=== PATIENT | female | born 1945 | race Caucasian/White ===

== ENCOUNTER 2019-10-19 07:35 | Outpatient (CLI) | payer MEDICARE, OTHER, SELFPAY ==
--- NOTE | ~2019-10-19 | DEXA_ITS ---
Bone Density Report Name: Azul Kaminski Age: 74 Sex: Female Ethnicity: White Date of : 1945 Indication: postmenopausal; height loss; cancer; hysterectomy; Referring Provider: IZA GUTIERREZ Study: Bone densitometry was performed. Exam Date: October 19, 2019 Accession number: [id number] Bone Density: Region BMD T-score Z-score Classification AP Spine (L1-L4) 0.761 -2.6 -0.1 Osteoporosis Femoral Neck (Left) 0.652 -1.8 0.4 Osteopenia Total Hip (Left) 0.707 -1.9 -0.1 Osteopenia Total Hip Bilateral Avg 0.727 -1.8 0.1 Osteopenia Femoral Neck (Right) 0.668 -1.6 0.5 Osteopenia Total Hip (Right) 0.746 -1.6 0.3 Osteopenia World Health Organization criteria for BMD impression classify patients as: Normal (T-score at or above -1.0), Osteopenia (T-score between -1.0 and -2.5), or Osteoporosis (T-score at or below -2.5). 10-year Fracture Risk: FRAX not reported because: Some T-score for Spine Total or Hip Total or Femoral Neck at or below -2.5 Clinical Information Provided by Patient: Has used the following medications: Vitamin D, Calcium Has the following medical conditions: Cancer, Hysterectomy Patient maximum height was 67 Menopause Age: 41 No regular weight bearing exercise Drinks caffeinated beverages Onset of menses at age 11 Number of children 2 Impression: The patient has osteoporosis, based on the Total Spine T-score. Discussion: INCREASED RISK OF FRACTURE. BONE DENSITY IS UNDESIRABLY LOW AT ONE OR MORE SKELETAL SITES, CONSISTENT WITH POSTMENOPAUSAL OSTEOPOROSIS. This patient's lowest T-score meets the World Health Organization's (WHO) criteria for osteoporosis at one or more sites (T-score -2.5 or below). In untreated patients, the risk of osteoporotic fracture increases approximately two-fold for each 1.0 SD decrease in T-score. Low bone density is not the only risk factor for fracture; also consider factors such as patient's age, frailty or poor health, risk of falling, risk of injury, previous osteoporotic fracture, family history of osteoporosis, cigarette smoking, low body weight, etc. Not everyone with low bone mineral density has osteoporosis; osteomalacia and other metabolic bone disorders should also be considered. Patients who have osteoporosis should be evaluated for specific diseases and conditions (secondary causes) that may cause or contribute to bone loss. The [place] [employer]ocrinologists (AACE) and National Osteoporosis Foundation (NOF) recommend pharmacologic intervention for all postmenopausal women whose T-score is in this range. The patient should follow a healthful lifestyle (good nutrition with adequate calcium and vitamin D, and appropriate weight-bearing exercise). Follow-Up: Consider a repeat BMD and Vertebral Fracture Assessment (VFA) exam in 2 years or sooner if
--- NOTE | ~2019-10-19 | CT_ITS ---
EXAMINATION: CT lung screening DATE: 10/19/2019 09:15 INDICATION: Personal history of nicotine dependence, prior smoker with 46 pack year history TECHNIQUE: Computed tomography (CT) of the chest was performed without intravenous contrast. The dose -length product (DLP) was 82.42 mGy-cm. Automated exposure control and iterative reconstruction techn [employer] were employed. COMPARISON: None FINDINGS: There is severe emphysema. No suspicious pulmonary nodules are identified. The lungs are fr ee of acute opacities. There is no pleural effusion or pneumothorax. No pathologically enlarged thora cic lymph nodes are identified. The heart size is normal. Calcified coronary artery atherosclerosis i s noted. There are left breast masses measuring up to 1.2 cm, diagnostic mammogram pending. There is moderate thoracic spondylosis. IMPRESSION: 1. Lung-RADS category 1: Negative. Continue annual screening with noncontrast low-dose chest CT in 12 months. Reviewed, dictated and finalized at location B. IMPRESSION: 1. Lung-RADS category 1: Negative. Continue annual screening with noncontrast l ow-dose chest CT in 12 months.
--- NOTE | ~2019-10-19 | MM_ITS ---
EXAMINATION: MM screening mariya BI w isael HISTORY: Screening TECHNIQUE: Craniocaudal and mediolateral oblique 3-D tomosynthesis images were obtained and synthetic 2-D images were generated. CAD analysis was submitted and interpreted. COMPARISON: No prior mammogram is available for comparison at this institution. BREAST PARENCHYMAL COMPOSITION: Breast composed of scattered areas of fibroglandular density. FINDINGS: There are asymmetric nodular densities of the left breast. There is no mammographic evidenc e for malignancy in the right breast. IMPRESSION: 1. Nodular asymmetries periareolar region of the left breast. 2. Additional mammographic views and possible breast ultrasound are recommended. BI-RADS Category 0: Incomplete: Needs additional imaging evaluation. Reviewed, dictated and finalized at location A. IMPRESSION: 1. Nodular asymmetries periareolar region of the left breast. 2. Additional mammographic views and possible breast ultrasound are recommended . BI-RADS Category 0: Incomplete: Needs additional imaging evaluation.
== END 2019-10-19 07:36 | disposition home or self-care (01) ==
PROVIDERS: PCP Family Medicine; Visit Provider Family Medicine
DX: Z12.31 Encounter for screening mammogram for malignant neoplasm of breast (principal); Z78.0 Asymptomatic menopausal state; Z87.39 Personal history of other diseases of the musculoskeletal system and connective tissue; Z87.891 Personal history of nicotine dependence; Z12.2 Encounter for screening for malignant neoplasm of respiratory organs; R92.8 Other abnormal and inconclusive findings on diagnostic imaging of breast; M85.89 Other specified disorders of bone density and structure, multiple sites; M81.0 Age-related osteoporosis without current pathological fracture
CPT/HCPCS: 77063; 77067; 77080; G0297

== ENCOUNTER 2019-11-13 11:22 | Outpatient (CLI) | payer MEDICARE, OTHER, SELFPAY ==
--- NOTE | ~2019-11-13 | MMUS_ITS ---
EXAMINATION: MM diagnostic mammo unilat LT, US breast LT limited HISTORY: Left breast mass TECHNIQUE: Additional 3-D tomosynthesis images of the left breast were performed and synthetic 2-D im ages were generated. CAD analysis was submitted and interpreted. High resolution Limited left breast ultrasound was performed. COMPARISON: 10/19/2019 BREAST PARENCHYMAL COMPOSITION: Breast composed of scattered areas of fibroglandular density. FINDINGS: MAMMOGRAPHIC FINDINGS: There is a 13 mm subareolar mass of the left breast with circumscribed margins. There are benign calc ifications. ULTRASOUND: Left breast ultrasound: At 3:00 near the nipple there is a 1.3 x 0.6 x 1.1 cm oval circumscribed hypo echoic mass with mixed posterior attenuation. No internal vascularity. This corresponds to the mass s een on mammography. There are shadowing calcifications at 9 and 12:00. IMPRESSION: 1. Probable benign 13 mm left breast mass at 3:00 near the nipple corresponding to the mammographic f inding. 2. Recommend 6 month follow-up left breast ultrasound BI-RADS category 3, probably benign findings. Reviewed, dictated and finalized at location A. IMPRESSION: 1. Probable benign 13 mm left breast mass at 3:00 near the nipple corresponding to the mammographic finding. 2. Recommend 6 month follow-up left breast ultrasound BI-RADS category 3, probably benign findings.
== END 2019-11-13 11:23 | disposition home or self-care (01) ==
LOC: ANHIMG 11:25
PROVIDERS: PCP Family Medicine; Visit Provider Family Medicine
DX: R92.8 Other abnormal and inconclusive findings on diagnostic imaging of breast (principal)
CPT/HCPCS: 76642; 77065

== ENCOUNTER → 2020-05-19 14:02 | Outpatient (CLI) | payer MEDICARE, OTHER, SELFPAY ==
--- NOTE | ~2020-05-19 | US_ITS ---
US breast LT limited 05/19/2020 14:24 Indication: Follow-up left breast mass Procedure: High-resolution Limited left breast ultrasound Comparison: 11/13/2019 Findings: At 3:00, 3 cm from the nipple, there is an oval circumscribed hypoechoic mass with stable s ize measuring 12 x 11 x 7 mm compared with 13 x 11 x 6 mm on prior examination. No internal vasculari ty. There is mixed posterior attenuation. No other masses identified. Impression: 1: Stable 12 mm left breast mass at 3:00, 3 cm from the nipple, likely benign. BI-RADS CATEGORY 3-PROBABLY BENIGN FINDING RECOMMENDATION: Six-month follow-up diagnostic mammogram and left breast ultrasound recommended. Reviewed, dictated and finalized at location A. Impression: 1: Stable 12 mm left breast mass at 3:00, 3 cm from the nipple, likely benign. BI-RADS CATEGORY 3-PROBABLY BENIGN FINDING RECOMMENDATION: Six-month follow-up diagnostic mammogram and left breast ultras ound recommended.
== END ==
PROVIDERS: PCP Family Medicine; Visit Provider Family Medicine
DX: R92.8 Other abnormal and inconclusive findings on diagnostic imaging of breast (principal)
CPT/HCPCS: 76642

== ENCOUNTER → 2020-11-07 09:35 | Outpatient (CLI) | payer MEDICARE, OTHER, SELFPAY ==
--- NOTE | ~2020-11-07 | XR_ITS ---
XR chest 2V DATE: 11/07/2020 10:05 INDICATION: Shortness of breath TECHNIQUE: 2 views COMPARISON: 10/19/2019 CT lung screening examinations FINDINGS: Heart size is within normal range. There is aortic calcification and tortuosity. No hilar o r mediastinal enlargement is evident. There is chronic mild elevation left leaf of the diaphragm. No pulmonary infiltrate or consolidation, pleural effusion or pulmonary vascular congestion or pneumothorax. Diffuse osteopenia. IMPRESSION: No active disease Reviewed, dictated and finalized at location B. IMPRESSION: No active disease
== END ==
PROVIDERS: PCP Family Medicine; Visit Provider Physician Assistant
DX: R06.02 Shortness of breath (principal)
CPT/HCPCS: 71046

== ENCOUNTER 2020-12-22 09:03 | Outpatient (CLI) | payer MEDICARE, OTHER, SELFPAY ==
--- NOTE | 2020-12-22 14:12 | WPDPFTINT ---
PFT Procedure Performed PFT Procedure Performed Plethysmography (Lung Vol) Diffusing Cap (DLCO) Flow Vol Loop Spirometry w/o Bronchodil PFT Interpretation This is a pulmonary function test with spirometry, plethysmography and diffusing capacity. The test was performed and results interpreted in accordance with the 2019 and 2005 ATS/ERS Task Force guidelines respectively using the Global Lung Function Initiative-2012 reference equations. Patient demonstrated good effort and cooperation. Reproducibility criteria were met. The quality of the spirometry maneuver was Grade A. Findings: Spirometry: There is decreased maximal expiratory airflow at all lung volumes with concave expiratory flow tracing. The contour the inspiratory flow tracing is normal. The FVC is 2.94 L, 111% predicted. The FEV1 is 1.35 L, 67% predicted. The FEV1: FVC ratio is 46%. Plethysmography: The total lung capacity is 5.69 L, 112% predicted. The functional residual capacity 3.74 L, 128% predicted. The residual volume is 2.70 L, 116% predicted. Diffusing capacity: The absolute diffusion capacity is 9.3, 47% predicted. The diffusing capacity corrected for alveolar volume is 2.48, 59% predicted. Impression: There is a moderate obstructive abnormality. The lung volumes are normal. The absolute diffusing capacity is moderately decreased and remains moderately decreased when corrected for alveolar volume. There are no prior studies for comparison
== END 2020-12-22 09:04 | disposition home or self-care (01) ==
LOC: ANHCARD 09:03
PROVIDERS: PCP Family Medicine; Visit Provider Family Medicine
DX: R06.02 Shortness of breath (principal); R94.2 Abnormal results of pulmonary function studies
CPT/HCPCS: 94375; 94726; 94729

== ENCOUNTER 2020-12-23 08:53 | Outpatient (CLI) | payer MEDICARE, OTHER, SELFPAY ==
--- NOTE | 2020-12-23 09:15 | EST_ITS ---
Patient Info Name: Azul Kaminski Age: 75 years : 1945 Gender: Female Ht: 64 in Wt: 166 lbs BSA: 1.87 m2 Exam Date: 12/23/2020 9:42 AM Exam Location: [facility] Pulmonary Patient Status: Outpatient Admit Date: 12/23/2020 Staff Ordering Physician: Mina Tolliver PA-C Imcu Specialist: Jf Simons RDCS, RT Attending Provider: JAX SOUTH DO Referring Physician: Unruly WYNNE; Exercise Technologist: Purvi Watson RDCS Exercise Physician: Jax South DO Exam Type: CA stress echo Study Info Indications R06.02 - Shortness of breath Treadmill exercise stress echocardiogram is performed. Summary 1. 1. Negative Sukhdev exercise stress test for ischemic ST changes by ECG criteria. 2. 2. Reduced functional capacity, achieving 5 METs of workload. 3. 3. Appropriate HR response to exercise. 4. 4. Appropriate HR recovery at 1 minute post exercise. 5. 5. Stress echocardiogram is negative for ischemia by wall motion analysis. It does demonstrate fixed basal posterior/inferior wall severe hypokinesis/akinesis suggesting prior infarct or scar. 6. 6. Patient informed of the above results. Stress Echo Findings Left Ventricle Basal posterior/inferior wall severely hypokinetic to akinetic. Remaining wall segments show appropriate increase in LV endocardial thickening and augmentation of contractility with systole. Left Ventricle Normal LV systolic function. Basal posterior/inferior wall is severey hypokinetic to akinetic. Protocol: Sukhdev Stress ECG Details Stage: REST Duration (min): 9 min : 17 sec Speed (mph): 0.0 Grade (%): 0 HR (bpm): 67 SBP (mmHg): 144 DBP (mmHg): 90 METS: --- Stage: REST Duration (min): 20 min : 51 sec Speed (mph): 0.0 Grade (%): 0 HR (bpm): --- SBP (mmHg): 144 DBP (mmHg): 90 METS: --- Stage: STAGE 1 Duration (min): 1 min : 0 sec Speed (mph): 1.7 Grade (%): 10 HR (bpm): 95 SBP (mmHg): 144 DBP (mmHg): 90 METS: --- Stage: STAGE 1 Duration (min): 2 min : 0 sec Speed (mph): 1.7 Grade (%): 10 HR (bpm): 114 SBP (mmHg): 144 DBP (mmHg): 90 METS: --- Stage: STAGE 1 Duration (min): 3 min : 0 sec Speed (mph): 1.7 Grade (%): 10 HR (bpm): 123 SBP (mmHg): 194 DBP (mmHg): 88 METS: --- Stage: STAGE 2 Duration (min): 0 min : 19 sec Speed (mph): 0.0 Grade (%): 0 HR (bpm): 128 SBP (mmHg): 194 DBP (mmHg): 88 METS: --- Stage: RECOVERY Duration (min): 0 min : 40 sec Speed (mph): 0.0 Grade (%): 0 HR (bpm): 119 SBP (mmHg): 194 DBP (mmHg): 88 METS: --- Stage: RECOVERY Duration (min): 1 min : 40 sec Speed (mph): 0.0 Grade (%): 0 HR (bpm): 108 SBP (mmHg): 196 DBP (mmHg): 88 METS: --- Stage: RECOVERY Duration (min): 2 min : 40 sec Speed (mph): 0.0 Grade (%): 0 HR (bpm): 94 SBP (mmHg): 196 DBP (mmHg): 88 METS: --- Stage: RECOVERY Duration (min): 3 min : 40 sec Speed (mph): 0.0 Grade (%): 0 HR (bpm):
== END 2020-12-23 08:54 | disposition home or self-care (01) ==
LOC: ANHCARD 08:54
PROVIDERS: PCP Family Medicine; Visit Provider Family Medicine
DX: R06.02 Shortness of breath (principal)
CPT/HCPCS: 93351

== ENCOUNTER → 2020-12-29 13:15 | Outpatient (CLI) | payer MEDICARE, OTHER, SELFPAY ==
--- NOTE | ~2020-12-29 | MMUS_ITS ---
EXAMINATION: MM diagnostic mariya BI w isael, US breast LT limited HISTORY: Follow-up for probably benign left breast mass TECHNIQUE: Craniocaudal, mediolateral, and mediolateral oblique 3-D tomosynthesis images of the vandana ts were performed and synthetic 2-D images were generated. CAD analysis was submitted and interpreted . High resolution limited left breast ultrasound was performed. COMPARISON: 05/19/2020, 11/13/2019, 10/19/2019 BREAST PARENCHYMAL COMPOSITION: The breasts are heterogeneously dense, which may obscure small masses . FINDINGS: MAMMOGRAPHIC FINDINGS: There is a stable 1.4 cm oval, obscured, equal density mass at the 3:00 location in the anterior thir d of the breast 2.5 cm from the nipple. There has been no suspicious interval change. No new mass, ca lcification, or architectural distortion are identified. Right breast: There is no evidence of suspicious mass, calcification, or architectural distortion to suggest malignancy. There has been no suspicious interval change. ULTRASOUND: There is a stable 1.2 x 0.6 cm oval, circumscribed, parallel, hypoechoic mass with no posterior featu res or internal vascularity at the 3:00 location 3 cm from the nipple. IMPRESSION: 1. Stable, probably benign left breast mass. 2. Given one year of interval stability, recommend 12 month followup bilateral diagnostic mammogram w ith left breast ultrasound. BI-RADS category 3, probably benign findings. Reviewed, dictated and finalized at location A. ING MACHINE OPERATOR IMPRESSION: 1. Stable, probably benign left breast mass. 2. Given one year of interval stability, recommend 12 month followup bilateral diagnostic mammogram with left breast ultrasound. BI-RADS category 3, probably benign findings.
== END ==
PROVIDERS: PCP Family Medicine; Visit Provider Physician Assistant
DX: R92.8 Other abnormal and inconclusive findings on diagnostic imaging of breast (principal)
CPT/HCPCS: 76642; 77062; 77066; G0279

== ENCOUNTER 2021-01-12 09:29 | Outpatient (CLI) | payer MEDICARE, OTHER, SELFPAY ==
--- NOTE | 2021-01-12 09:45 | ECHO_ITS ---
Patient Info Name: Azul Kaminski Age: 75 years : 1945 Gender: Female Ht: 64 in Wt: 166 lbs BSA: 1.87 m2 HR: 59 bpm BP: 164 / 96 mmHg Exam Date: 01/12/2021 10:32 AM Exam Location: [facility] Pulmonary Patient Status: Outpatient Admit Date: 01/12/2021 Staff Ordering Physician: Katrina Crowley MD Data Consultant: Jf Simons, JESSE, RT Attending Provider: Katrina Crowley MD Referring Physician: Carline REEDER; Exam Type: CA echo doppler color flow Study Info Indications R06.02 - Shortness of breath Complete two-dimensional, color flow and Doppler transthoracic echocardiogram is performed. Strain analysis performed. Summary 1. Complete two-dimensional, color flow and Doppler transthoracic echocardiogram is performed. 2. Left ventricular chamber dimension is normal. 3. Left ventricular systolic function is normal, estimated at 60-65%. 4. The left ventricular diastolic function is grade I diastolic dysfunction. 5. E/e' 9 is minimally elevated. 6. Global longitudinal strain is normal at -20.1%. 7. There is mild aortic valve regurgitation. 8. There is trace mitral valve regurgitation. Left Ventricle E/e' 9 is minimally elevated. Global longitudinal strain is normal at -20.1%. Left ventricular chamber dimension is normal. Left ventricular systolic function is normal, estimated at 60-65%. The left ventricular diastolic function is grade I diastolic dysfunction. Right Ventricle Right ventricular systolic function is normal and with normal TAPSE 2.2 cm. Right ventricular chamber dimension is normal. Left Atria Left atrial chamber dimension is normal. Right Atria Right atrial chamber dimension is normal. Aortic Valve The aortic valve is probable trileaflet. There is no aortic valve stenosis. There is mild aortic valve regurgitation. Pulmonic Valve There is no pulmonic regurgitation. Mitral Valve There is no mitral valve stenosis. There is trace mitral valve regurgitation. Tricuspid Valve There is no tricuspid valve regurgitation. Pericardium/Pleural There is no pericardial effusion. Inferior Vena Cava Normal inferior vena cava with >50% collapse upon inspiration consistent with normal right atrial pressure, 5 mmHg. Aorta The aortic root size at the sinus of Valsalva is normal. Left Ventricular Outflow Tract Name Value Normal LVOT 2D LVOT Diameter 1.9 cm LVOT Doppler LVOT Peak Gradient 4 mmHg LVOT Mean Gradient 2 mmHg LVOT VTI 27 cm LVOT VTI/AV VTI Ratio 0.8 LVOT Stroke Volume 79 ml LVOT CO 4.4 l/min LVOT CI 2.4 l/min/m2 Mitral Valve Name Value Normal MV Doppler MV Decel Dooly 3
== END 2021-01-12 09:30 | disposition home or self-care (01) ==
LOC: ANHCARD 09:30
PROVIDERS: PCP Family Medicine; Visit Provider Family Medicine
DX: R06.02 Shortness of breath (principal); I35.1 Nonrheumatic aortic (valve) insufficiency
CPT/HCPCS: 93306

== ENCOUNTER 2021-04-23 12:33 | Outpatient (CLI) | payer MEDICARE, OTHER, SELFPAY ==
[2021-04-23 12:45] VITALS: PULSE 90; O2SAT 91
[2021-04-23 12:47] VITALS: PULSE 118; O2SAT 87
[2021-04-23 12:48] VITALS: PULSE 118; O2SAT 87
[2021-04-23 12:49] VITALS: PULSE 121; O2SAT 90
[2021-04-23 13:00] VITALS: PULSE 92; O2SAT 92
--- NOTE | 2021-04-23 13:13 | HOMEO2EVAL ---
Evaluation was performed at [facility] Home Oxygen Evaluation RC: Home Oxygen (O2) Evaluation Start: 04/23/21 13:09 Freq: Status: Active Protocol: RPE Activity Type Activity Date Activity User E-Sign Co-Sign Detail Recorded Client Recorded Date Recorded By Document 04/23/21 12:45 KRM [email or web address] 04/23/21 13:13 KRM Document 04/23/21 12:47 KRM [email or web address] 04/23/21 13:13 KRM Document 04/23/21 12:48 KRM [email or web address] 04/23/21 13:13 KRM Document 04/23/21 12:49 KRM [email or web address] 04/23/21 13:13 KRM Document 04/23/21 13:00 KRM [email or web address] 04/23/21 13:13 KRM 04/23/21 04/23/21 04/23/21 12:45 12:47 12:48 Home O2 Evaluation Test Phase Resting Exercise Exercise Oxygen Delivery Room Air Room Air Nasal Cannula Oxygen Flow Rate (L/min) 1 Pulse Oximetry (90-100 %) 91 87 L 87 L Pulse Rate (60-100 beats/min) 90 118 H 118 H Activity Tolerance Ambulation Distance (feet) Ambulation Distance (meters) Home Oxygen Evaluation Comments Treatment Charges 04/23/21 04/23/21 12:49 13:00 Home O2 Evaluation Test Phase Exercise Resting Oxygen Delivery Nasal Cannula Room Air Oxygen Flow Rate (L/min) 2 Pulse Oximetry (90-100 %) 90 92 Pulse Rate (60-100 beats/min) 121 H 92 Activity Tolerance Good Ambulation Distance (feet) 200 Ambulation Distance (meters) 60.95 Home Oxygen Evaluation Comments PT. REQUIRES 2LPM O2 WITH ACTIVITY. Treatment Charges O2 Evaluation - Outpatient
== END 2021-04-23 12:34 | disposition home or self-care (01) ==
LOC: ANHPFT 12:35
PROVIDERS: PCP Family Medicine; Visit Provider Family Medicine
DX: J43.9 Emphysema, unspecified (principal); R06.02 Shortness of breath
CPT/HCPCS: 94618

== ENCOUNTER → 2021-10-20 11:19 | Outpatient (CLI) | payer MEDICARE, OTHER, SELFPAY ==
--- NOTE | ~2021-10-20 | XR_ITS ---
EXAMINATION: XR chest 2V DATE: 10/20/2021 11:40 INDICATION: Cough TECHNIQUE: PA and lateral views of the chest were obtained. COMPARISON: Chest radiograph dated 11/07/2020 FINDINGS: Unchanged elevation of the left hemidiaphragm. No focal airspace opacities, pulmonary edema, pleural effusion or pneumothorax. Cardiomediastinal silhouette is within normal limits. Tortuous thoracic aor ta. Mild S-shaped curvature of the thoracic spine with moderate spondylosis. IMPRESSION: 1. Unchanged elevation the left hemidiaphragm. No acute cardiopulmonary disease. Reviewed, dictated and finalized at location A. IMPRESSION: 1. Unchanged elevation the left hemidiaphragm. No acute cardiopulmonary disease .
== END ==
PROVIDERS: PCP Family Medicine; Visit Provider Physician Assistant
DX: R05.9 Cough, unspecified (principal); J43.9 Emphysema, unspecified; M47.814 Spondylosis without myelopathy or radiculopathy, thoracic region; Q25.46 Tortuous aortic arch
CPT/HCPCS: 71046

== ENCOUNTER → 2021-10-28 13:47 | Outpatient (CLI) | payer MEDICARE, OTHER, SELFPAY ==
--- NOTE | ~2021-10-28 | DEXA_ITS ---
Bone Density Report Name: SHAAN ORTEGA Age: 76 Sex: Female Ethnicity: White Date of : 1945 Indication: postmenopausal; screening for osteoporosis; height loss; asthma or emphysema; hysterectomy; Referring Provider: Senia Gutierrez Study: Bone densitometry was performed. Exam Date: October 28, 2021 Accession number: [id number] Bone Density: Region BMD T-score Z-score Classification AP Spine (L3, L4) 0.780 -2.9 -0.2 Osteoporosis Femoral Neck (Left) 0.673 -1.6 0.7 Osteopenia Total Hip (Left) 0.774 -1.4 0.6 Osteopenia Femoral Neck (Right) 0.679 -1.5 0.7 Osteopenia Total Hip (Right) 0.725 -1.8 0.2 Osteopenia Total Hip Mean 0.750 -1.6 0.4 Osteopenia World Health Organization criteria for BMD impression classify patients as: Normal (T-score at or above -1.0), Osteopenia (T-score between -1.0 and -2.5), or Osteoporosis (T-score at or below -2.5). 10-year Fracture Risk: FRAX not reported because: Some T-score for Spine Total or Hip Total or Femoral Neck at or below -2.5 Clinical Information Provided by Patient: Is being treated for osteoporosis Has used the following medications: Fosamax (i.e. alendronate), Vitamin D Has the following medical conditions: Asthma or Emphysema, Hysterectomy Patient maximum height was 67 Menopause Age: 41 No regular weight bearing exercise Drinks caffeinated beverages Onset of menses at age 11 Number of children 2 Impression: The patient has osteoporosis, based on the Total Spine T-score. Discussion: It is important to ask patients whether they are taking their medications and to encourage continued and appropriate compliance with their osteoporosis therapies to reduce fracture risk. It is also important to review their risk factors and encourage appropriate calcium and vitamin D intakes, exercise, fall prevention and other lifestyle measures. Follow-Up: Consider a repeat BMD and Vertebral Fracture Assessment (VFA) exam in 2 years or sooner if medically necessary, to reassess this patient's status. Reported by: [facility] on 10/28/2021 2:13:00 PM. Reviewed, dictated and finalized at location ABettye MATHEW
== END ==
PROVIDERS: PCP Family Medicine; Visit Provider Physician Assistant
DX: Z78.0 Asymptomatic menopausal state (principal); M81.0 Age-related osteoporosis without current pathological fracture; M85.851 Other specified disorders of bone density and structure, right thigh; M85.852 Other specified disorders of bone density and structure, left thigh
CPT/HCPCS: 77080

== ENCOUNTER → 2022-10-12 14:46 | Outpatient (CLI) | payer MEDICARE, OTHER, SELFPAY ==
--- NOTE | ~2022-10-12 | XR_ITS ---
EXAMINATION: XR chest 2V DATE: 10/12/2022 15:03 INDICATION: Shortness of breath. TECHNIQUE: Frontal and lateral views of the chest were obtained. COMPARISON: Chest 2 views 10/20/2021 FINDINGS: There is chronic mild elevation of left hemidiaphragm. There is mild atelectasis at the gwendolyn g bases. No pleural effusion or pneumothorax. The heart size is normal. IMPRESSION: 1. Mild atelectasis at the lung bases. Reviewed, dictated and finalized at location A.
== END ==
PROVIDERS: PCP Family Medicine; Visit Provider Family Medicine
DX: R09.02 Hypoxemia (principal); R06.02 Shortness of breath; J98.11 Atelectasis
CPT/HCPCS: 71046

== ENCOUNTER 2022-11-17 09:40 | Outpatient (CLI) | payer MEDICARE, OTHER, SELFPAY ==
--- NOTE | 2022-11-17 09:51 | ECHO_ITS ---
Patient Info Name: Azul Kaminski Age: 77 years : 1945 Gender: Female Ht: 67 in Wt: 173 lbs BSA: 1.94 m2 HR: 71 bpm BP: 186 / 97 mmHg Heart Rhythm: Sinus Rhythm Technical Quality: Good Exam Date: 11/17/2022 10:10 AM Exam Location: [facility] Patient Status: Outpatient Admit Date: 11/17/2022 Staff Ordering Physician: Katrina Crowley MD Auto Hiker: Maria Dolores Johnson RDCS Attending Provider: Katrina Crowley MD Referring Physician: Carline REEDER; Exam Type: CA echo doppler color flow Study Info Indications - DYSPNEA, UNSPECIFIED Complete two-dimensional, color flow and Doppler transthoracic echocardiogram is performed. Summary 1. Complete two-dimensional, color flow and Doppler transthoracic echocardiogram is performed. 2. Left ventricular chamber dimension is normal. 3. Left ventricular systolic function is normal, estimated at 60-65%. 4. There is mild concentric increased left ventricular wall thickness. 5. The left ventricular diastolic function is grade I diastolic dysfunction. 6. E/e' 8 is minimally elevated. 7. No pulmonary hypertension, estimated pulmonary arterial systolic pressure is 18 mmHg. Left Ventricle E/e' 8 is minimally elevated. Left ventricular chamber dimension is normal. Left ventricular systolic function is normal, estimated at 60-65%. There is mild concentric increased left ventricular wall thickness. The left ventricular diastolic function is grade I diastolic dysfunction. Right Ventricle Right ventricular systolic function is normal and with normal TAPSE 2.3 cm. Right ventricular chamber dimension is normal. Left Atria Left atrial chamber dimension is normal. Right Atria Right atrial chamber dimension is normal. Aortic Valve The aortic valve is trileaflet. There is no aortic valve stenosis. There is no aortic valve regurgitation. Pulmonic Valve There is no pulmonic regurgitation. Mitral Valve There is no mitral valve stenosis. There is no mitral valve regurgitation. Tricuspid Valve There is no tricuspid valve regurgitation. No pulmonary hypertension, estimated pulmonary arterial systolic pressure is 18 mmHg. Pericardium/Pleural There is no pericardial effusion. Inferior Vena Cava Normal inferior vena cava with >50% collapse upon inspiration consistent with normal right atrial pressure, 5 mmHg. Aorta The aortic root size at the sinus of Valsalva is normal. Left Ventricular Outflow Tract Name Value Normal LVOT 2D LVOT Diameter 1.8 cm LVOT Doppler LVOT Peak Gradient 4 mmHg LVOT Mean Gradient 2 mmHg LVOT VTI 32 cm LVOT VTI/AV VTI Ratio 1.1 LVOT Stroke Volume 85 ml LVOT CO 4.7 l/min LVOT CI 2.4 l/min/m2 Pulmonic Valve Name Value Normal RVOT Doppler RVOT Peak
== END 2022-11-17 09:41 | disposition home or self-care (01) ==
LOC: ANHCARD 09:41
PROVIDERS: PCP Family Medicine; Visit Provider Family Medicine
DX: J43.9 Emphysema, unspecified (principal); R06.00 Dyspnea, unspecified
CPT/HCPCS: 93306

== ENCOUNTER 2022-11-18 10:17 | Outpatient (CLI) | payer MEDICARE, OTHER, SELFPAY ==
[2022-11-18 19:45] LABS: Vitamin D 25 Hydroxy 73.3 ng/mL
== END 2022-11-18 10:18 | disposition home or self-care (01) ==
PROVIDERS: PCP Family Medicine; Visit Provider Family Medicine
DX: M81.0 Age-related osteoporosis without current pathological fracture (principal); E55.9 Vitamin D deficiency, unspecified
CPT/HCPCS: 36415; 82306

== ENCOUNTER 2022-12-24 14:23 | Outpatient (CLI) | payer MEDICARE, OTHER, SELFPAY ==
[2022-12-24 14:30] VITALS: PULSE 73; O2SAT 87
[2022-12-24 14:32] VITALS: PULSE 72; O2SAT 94
[2022-12-24 14:35] VITALS: PULSE 96; O2SAT 91
[2022-12-24 15:35] VITALS: PULSE 75; O2SAT 94
--- NOTE | 2022-12-24 15:38 | HOMEO2EVAL ---
Evaluation was performed at [facility] Home Oxygen Evaluation RC: Home Oxygen (O2) Evaluation Start: 12/24/22 15:32 Freq: Status: Active Protocol: RPE Activity Type Activity Date Activity User E-sign Co-sign Detail Recorded Client Recorded Date Recorded By Document 12/24/22 14:30 [email or web address] [email or web address] 12/24/22 15:38 DJO Document 12/24/22 14:32 [email or web address] [email or web address] 12/24/22 15:38 DJO Document 12/24/22 14:35 [email or web address] [email or web address] 12/24/22 15:38 DJO Document 12/24/22 15:35 [email or web address] [email or web address] 12/24/22 15:38 DJO 12/24/22 12/24/22 12/24/22 14:30 14:32 14:35 Home O2 Evaluation [Oxygen] -Test Phase Resting Resting Exercise -Oxygen Delivery Room Air Nasal Cannula Nasal Cannula -Oxygen Flow Rate (L/min) 2 2 [Pulse Oximetry] -Pulse Oximetry (90-100 %) 87 L 94 91 [Pulse Rate] -Pulse Rate (60-100 beats/min) 73 72 96 [Exercise] -Ambulation Distance (feet) 500 -Ambulation Distance (meters) 152.39 [Comments] -Home Oxygen Evaluation Comments PATIENT O2 EVAL 2L AT REST AND WITH ACTIVITY [Charges] -Treatment Charges O2 Evaluation - Outpatient 12/24/22 15:35 Home O2 Evaluation [Oxygen] -Test Phase Resting -Oxygen Delivery Nasal Cannula -Oxygen Flow Rate (L/min) 2 [Pulse Oximetry] -Pulse Oximetry (90-100 %) 94 [Pulse Rate] -Pulse Rate (60-100 beats/min) 75 [Exercise] -Ambulation Distance (feet) -Ambulation Distance (meters) [Comments] -Home Oxygen Evaluation Comments [Charges] -Treatment Charges
--- NOTE | 2022-12-24 15:59 | WPDPFTINT ---
PFT Procedure Performed PFT Procedure Performed Spirometry with Pre/Post Bronchodilator Plethysmography (Lung Vol) Diffusing Cap (DLCO) Flow Vol Loop PFT Interpretation This is a pulmonary function test with pre and post-bronchodilator spirometry, plethysmography and diffusing capacity. The test was performed and results interpreted in accordance with the 2019 and 2005 ATS/ERS Task Force guidelines respectively using the Global Lung Function Initiative-2012 reference equations. Patient demonstrated good effort and cooperation. Reproducibility criteria were met. The quality of the pre bronchodilator spirometry maneuver was Grade A and post bronchodilator spirometry maneuver was Grade A. Findings: Spirometry: There is decreased maximal expiratory airflow at all lung volumes with concave expiratory flow tracing. The contour the inspiratory flow tracing is normal. The pre bronchodilator FVC is 2.19 L, 79% predicted. The pre bronchodilator FEV1 is 0.91 L, 43% predicted. The pre bronchodilator FEV1: FVC ratio is 41%. The post bronchodilator FVC is 2.53 L, representing a 15% increase. The post bronchodilator FEV1 is 1.20 L, representing a 33% increase. The post bronchodilator FEV1: FVC ratio is 48%. Plethysmography: The total lung capacity is 5.71 L, 106% predicted. The functional residual capacity is 4.28 L, 137% predicted. The residual volume is 3.46 L, 140% predicted. Diffusing capacity: The diffusing capacity unadjusted for hemoglobin and carboxyhemoglobin is 7.3, 36% predicted. The diffusing capacity adjusted for alveolar volume is 2.13, 53% predicted. In comparison to previous pulmonary function testing on 12/22/2020 in which only pre bronchodilator spirometry was performed, the pre bronchodilator FVC has decreased from 2.94 L to 2.19 L. The pre bronchodilator FEV1 has decreased from 1.35 L to 0.91 L. The total lung capacity is unchanged from 5.69 L to 5.71 L. The functional residual capacity has increased from 3.74 L to 4.28 L. The residual volume has increased from 2.70 L to 3.46 L. The diffusing capacity unadjusted for hemoglobin and carboxyhemoglobin is decreased from 9.3 to 7.3. The diffusing capacity adjusted for alveolar volume has decreased from 2.48 to 2.13. Impression: There is a severe obstructive abnormality with significant improvement after inhaling a single dose of albuterol. The increase in residual volume is consistent with air trapping from an obstructive abnormality. Hyperinflation is present as demonstrated by the increase in functional residual capacity and is consistent with an obstructive abnormality. The diffusing capacity unadjusted for hemoglobin and carboxyhemoglobin is severely decreased and remains moderately decreased when adjusted for alveolar volume. In comparison to previous pulmonary function testing on 12/22/2020 there has been a greater than anticipated time dependent decrease in the FVC, FEV1, and diffusing capacity. There has been a greater than anticipated time dependent increase in the functional residual capacity and residual volume. Clinical correlation is recommended.
== END 2022-12-24 14:24 | disposition home or self-care (01) ==
LOC: ANHPFT 14:24
PROVIDERS: PCP Family Medicine; Visit Provider Internal Medicine Pulmonary Disease
DX: J43.9 Emphysema, unspecified (principal); R06.00 Dyspnea, unspecified; R94.2 Abnormal results of pulmonary function studies
CPT/HCPCS: 94060; 94618; 94726; 94729

== ENCOUNTER 2024-01-24 13:37 | Outpatient (CLI) | payer MEDICARE, OTHER, SELFPAY ==
--- NOTE | ~2024-01-24 | DEXA_ITS ---
Bone Density Report Name: SHAAN ORTEGA Age: 78 Sex: Female Ethnicity: White Date of : 1945 Indication: postmenopausal; screening for osteoporosis; prior fracture; cancer; asthma or emphysema; hysterectomy; Referring Provider: IZA GUTIERREZ Study: Bone densitometry was performed. Exam Date: January 24, 2024 Accession number: [id number] Bone Density: Region BMD T-score Z-score Classification AP Spine(L3, L4) 0.830 -2.5 0.4 Osteoporosis Femoral Neck (Left) 0.690 -1.4 0.9 Osteopenia Total Hip (Left) 0.767 -1.4 0.7 Osteopenia Femoral Neck (Right) 0.688 -1.5 0.9 Osteopenia Total Hip (Right) 0.793 -1.2 0.9 Osteopenia Femoral Neck Mean 0.689 -1.4 0.9 Osteopenia Total Hip Mean 0.780 -1.3 0.8 Osteopenia World Health Organization criteria for BMD impression classify patients as: Normal (T-score at or above -1.0), Osteopenia (T-score between -1.0 and -2.5), or Osteoporosis (T-score at or below -2.5). 10-year Fracture Risk: FRAX not reported because: Some T-score for Spine Total or Hip Total or Femoral Neck at or below -2.5 Clinical Information Provided by Patient: Has had a low trauma fracture Has used the following medications: Fosamax (i.e. alendronate), Vitamin D Has the following medical conditions: Asthma or Emphysema, Cancer, Hysterectomy Patient maximum height was 67. Menopause Age: 48 No regular weight bearing exercise Drinks caffeinated beverages Onset of menses at age 11 Number of children 2 Impression: The patient has established osteoporosis, based on the Total Spine T-score and the existence of a prior fracture. The patient has risk factors, including: previous fracture. Discussion: HIGH RISK OF FRACTURE. BONE DENSITY IS UNDESIRABLY LOW AT ONE OR MORE SKELETAL SITES, CONSISTENT WITH POSTMENOPAUSAL OSTEOPOROSIS. This patient's lowest T-score, in a patient who has previously fractured, meets the World Health Organization's (WHO) criteria for severe osteoporosis. In untreated patients, the risk of osteoporotic fracture increases approximately two-fold for each 1.0 SD decrease in T-score. Low bone density is not the only risk factor for fracture; also consider factors such as patient's age, frailty or poor health, risk of falling, risk of injury, previous osteoporotic fracture, family history of osteoporosis, cigarette smoking, low body weight, etc. Not everyone with low bone mineral density has osteoporosis; osteomalacia and other metabolic bone disorders should also be considered. Patients who have osteoporosis should be evaluated for specific diseases and conditions (secondary causes) that may cause or contribute to bone loss. The [place] Association [employer] Clinical Endocrinologists (AACE) and National Osteoporosis Foundation (NOF) recommend pharmacologic intervention for all postmenopausal women whose T-score is in this range. The patient should follow a healthful lifestyle (good nutrition with adequate calcium and vitamin D, and appropriate weight-bearing exercise). Follow-Up: Consider a repeat BMD and Vertebral Fracture Assessment (VFA) exam in 2 years or sooner if medically necessary, to reassess this patient's status. Reported by: [email or web address] on 01/24/2024 1:58:00 PM. Reviewed, dictated and finalized at location A.
== END 2024-01-24 13:38 | disposition home or self-care (01) ==
LOC: CHSIMG 13:38
PROVIDERS: PCP Family Medicine; Visit Provider Family Medicine
DX: M81.0 Age-related osteoporosis without current pathological fracture (principal); M85.89 Other specified disorders of bone density and structure, multiple sites; Z79.899 Other long term (current) drug therapy; Z13.820 Encounter for screening for osteoporosis
CPT/HCPCS: 77080

== ENCOUNTER 2024-08-28 10:05 | Outpatient (CLI) | payer MEDICARE, OTHER, SELFPAY ==
--- OUTSIDE RECORDS SUMMARY | 2024-08-28 10:08 | XMS_ITS | Clinical Summary ---
Author Organization [facility] Address [address] [place] [id number] Care Team Providers Care Process Control Programmer Name Role Phone None, Provider Primary Care Provider Unavaila ble Social History Tobacco Use Types Packs/Day Years Used Date Smoking Tobacco: Never Assessed Comments Unknown Sex and Gender Information Value Date Recorded Sex Assigned at Not on file Legal Sex Female 5:15 PM CDT Gender Identity Not on file Sexual Orientation Not on file Last Filed Vital Signs Vital Sign Reading Time Taken Comments Blood Pressure 142/82 10/31/2014 9:51 AM CDT Pulse 71 10/31/2014 9:51 AM CDT Temperature - - Respiratory Rate - - Oxygen Saturation - - Inhaled Oxygen Concentration - - Weight 80 kg (176 lb 6.4 oz) 10/31/2014 9:51 AM CDT Height 166.4 cm (5' 5.5) 10/31/2014 9:51 AM CDT Body Mass Index 28.91 10/31/2014 9:51 AM CDT Plan of Treatment Health Maintenance Due Date Last Done Comments DTaP, Tdap and Td Vaccines ( 1 - Tdap) 1962 Annual Medicare Wellness Visit 2008 Dexa Scan (General) 2008 RSV Immunization or 60+ Years (1 - 1-dose 75+ series) 2018 Pneumococcal Vaccine: 50+ Years (2 of 2 - PPSV23) 10/08/2020 10/09/2019 COVID-19 Vaccine ( - 2023-2 5 season) 2023 04/24/2020, 04/03/2020 Zoster Vaccines Completed 11/05/2020, 08/19/2020 Meningococcal B Vaccine Aged Out No l onger eligible based on patient's age to complete this topic Meningococcal Vaccine Aged Out No stefani chetan eligible based on patient's age to complete this topic RSV Immunizations Under 20 Months Aged Out No longer eligible b ased on patient's age to complete this topic Insurance MEDICARE Care Teams Process Control Programmer Relationship Specialty Start Date End Date None, Provider, PCP - General 11/11/20
[2024-08-28 10:10] VITALS: PULSE 72; O2SAT 93
[2024-08-28 10:12] VITALS: PULSE 80; O2SAT 86
[2024-08-28 10:15] VITALS: PULSE 97; O2SAT 88
[2024-08-28 10:18] VITALS: PULSE 97; O2SAT 94
--- NOTE | 2024-08-28 10:36 | HOMEO2EVAL ---
Evaluation was performed at [facility] Home Oxygen Evaluation RC: Home Oxygen (O2) Evaluation Start: 08/28/24 10:25 Freq: Status: Active Protocol: RPE Activity Type Activity Date Activity User E-sign Co-sign Detail Recorded Client Recorded Date Recorded By Document 08/28/24 10:10 [email or web address] 08/28/24 10:36 SJB Document 08/28/24 10:12 [email or web address] 08/28/24 10:36 SJB Document 08/28/24 10:15 [email or web address] 08/28/24 10:36 SJB Document 08/28/24 10:18 SJB [email or web address] 08/28/24 10:36 SJB 08/28/24 08/28/24 08/28/24 10:10 10:12 10:15 Home O2 Evaluation [Oxygen] -Test Phase Resting Exercise Exercise -Oxygen Delivery Room Air Room Air Nasal Cannula -Oxygen Flow Rate (L/min) 1 [Pulse Oximetry] -Pulse Oximetry (90-100 %) 93 86 L 88 L [Pulse Rate] -Pulse Rate (60-100 beats/min) 72 80 97 [Evaluation] -Activity Tolerance Good Good -Rating of Perceived Dyspnea (PD) +1 Mild, +2 Mild, Some Noticeable to Difficulty, the Participant Noticeable to but Not to an the Observer Observer -Rate of Perceived Exertion (PE) 11 Fairly light Query Text:Click the Protocol Button to View the RPE Scale [Exercise] -Ambulation Distance (feet) 150 340 -Ambulation Distance (meters) 45.71 103.62 [Comments] -Home Oxygen Evaluation Comments Will begin walk After approx. After approx. on room air 150 ft. patient 340 ft patient 's s02 dropped dropped to 88%, to 87%. O2 HR 97. Patient started at 1 's oxygen lpm,Sp02 increased to 2 increased to 93 lpm, walk , HR 74. Walked continued with continued. Sp02 back up to 93% [Charges] -Evaluation Charges O2 Evaluation Charge 08/28/24 10:18 Home O2 Evaluation [Oxygen] -Test Phase Exercise -Oxygen Delivery Nasal Cannula -Oxygen Flow Rate (L/min) 2 [Pulse Oximetry] -Pulse Oximetry (90-100 %) 94 [Pulse Rate] -Pulse Rate (60-100 beats/min) 97 [Evaluation] -Activity Tolerance Good -Rating of Perceived Dyspnea (PD) +2 Mild, Some Difficulty, Noticeable to the Observer -Rate of Perceived Exertion (PE) 12 Query Text:Click the Protocol Button to View the RPE Scale [Exercise] -Ambulation Distance (feet) 340 -Ambulation Distance (meters) 103.62 [Comments] -Home Oxygen Evaluation Comments Pt. finished walk on 2 lpm with Sp02s staying between 92-94%. Pt walked a total of approx. 830 ft., talking throughout the test. PLB encouraged. Tolerated very well. [Charges] -Evaluation Charges
== END 2024-08-28 10:06 | disposition home or self-care (01) ==
LOC: CHSCARD 10:06
PROVIDERS: PCP Family Medicine; Visit Provider Physician Assistant
DX: J43.9 Emphysema, unspecified (principal); Z99.81 Dependence on supplemental oxygen
CPT/HCPCS: 94618